=== PATIENT | male | born 1950 | race Caucasian/White ===

== ENCOUNTER 2018-12-03 13:26 | Outpatient (CLI) | payer MEDICARE ==
[2018-12-03 14:18] LABS: #Basophils 0.1 thou/uL (0.0-0.2); #Eosinphils 0.4 thou/uL (0.0-0.7); #Lymphocytes 2.1 thou/uL (1.20-3.40); #Monocytes 0.5 thou/uL (0.11-0.59); #Neutrophils 4.3 thou/uL (1.40-6.50); %Basophils 0.8 % (0.0-1.0); %Eosinophils 5.6 % (0.0-10.0); %Lymphocytes 28.6 % (21.0-51.0); %Monocytes 6.6 % (0.0-10.0); %Neutrophils 58.4 % (42.0-75.0); Hemoglobin 14.8 g/dL (14.0-18.0); Mean Corpuscular HGB CONC 35.8 g/dL (32.0-36.0); Mean Corpuscular Hemoglobin 31.8 pg (27.0-31.0); Mean Corpuscular Volume 88.7 fL (78.0-98.0); Mean Platelet Volume 7.5 fL (7.4-10.4); Platelet Count 211 thou/uL (130-400); Red Blood Cell (RBC) Count 4.65 mill/uL (4.70-6.10); White Blood Cell (WBC) Count 7.4 thou/uL (4.8-10.8)
[2018-12-03 14:48] LABS: ALT (SGPT) 28 U/L (8-55); AST (SGOT) 21 U/L (5-34); Albumin 4.4 g/dL (3.4-4.8); Alkaline Phosphatase 98 U/L (40-110); Anion Gap 11 mmol/L (10-20); BUN (Urea Nitrogen) 8 mg/dL (8.4-25.7); Bilirubin, Total 0.5 mg/dL (0.2-1.2); Calc. Creatinine Clearance 0 mL/min (70-130); Calcium 9.2 mg/dL (7.8-10.44); Carbon Dioxide 27 mmol/L (23-31); Chloride 107 mmol/L (98-107); Estimated GFR-MDRD 59; Globulin 2.4 g/dL (2.4-3.5); Glucose 93 mg/dL (80-115); Potassium 4.2 mmol/L (3.5-5.1); Protein, Total 6.8 g/dL (5.8-8.1); Sodium 141 mmol/L (136-145)
== END 2018-12-03 13:27 | disposition home or self-care (01) ==
LOC: LABBT 13:26
PROVIDERS: ATTEND Internal Medicine Cardiovascular Disease
DX: Z01.812 Encounter for preprocedural laboratory examination (principal); R94.39 Abnormal result of other cardiovascular function study
CPT/HCPCS: 80053; 85025

== ENCOUNTER 2018-12-08 05:43 | Day surgery (SDC) | payer MEDICARE ==
[2018-12-03 13:33] VITALS: BMI 25.1
[2018-12-08] MEDS ORDERED: Lidocaine 1% (PF) 30 ML VIAL ONE (07:00)
[2018-12-08] MEDS ORDERED: Diazepam 5 MG TAB ONE (07:45)
[2018-12-08] MEDS ORDERED: Fentanyl 100 MCG/2 ML VIAL ONE (08:07)
[2018-12-08] MEDS ORDERED: Midazolam HCl 2 mg/2 ml Vial ONE (08:07)
[2018-12-08] MEDS ORDERED: Nitroglycerin 100MG/250ML BOT 250 ML ONE (08:22)
[2018-12-08] MEDS ORDERED: Hydrocortisone Sod Succ/PF 100 mg/2 ml Vial ONE (08:42)
[2018-12-08] MEDS ORDERED: diphenhydrAMINE 50 MG/ML VIAL ONE (08:42)
[2018-12-08 09:45] LABS: Cardiac Risk 4.7 (Less than 4.5)
[2018-12-08] MEDS ORDERED: Iopamidol 370 76% 100 ML VIAL ONE (20:21)
== END 2018-12-08 13:45 | disposition home or self-care (01) ==
LOC: CCL 05:43
PROVIDERS: ATTEND Internal Medicine Cardiovascular Disease
PROC: 4A023N7 Measurement of Cardiac Sampling and Pressure, Left Heart, Percutaneous Approach (ICD-10-PCS; principal; 2018-12-08)
DX: R07.89 Other chest pain (principal); R06.09 Other forms of dyspnea; I10 Essential (primary) hypertension; J44.9 Chronic obstructive pulmonary disease, unspecified; F17.210 Nicotine dependence, cigarettes, uncomplicated; E78.2 Mixed hyperlipidemia; I49.3 Ventricular premature depolarization; E78.00 Pure hypercholesterolemia, unspecified; Z79.899 Other long term (current) drug therapy; Z82.49 Family history of ischemic heart disease and other diseases of the circulatory system
CPT/HCPCS: 76942; 80061; 93458; 99152; 99153; C1769; J1200; J1644; J1720; J2001; J2250; J3010; Q9967

== ENCOUNTER 2019-10-08 12:18 | Emergency (ER) | payer MEDICARE ==
[2019-10-08 13:33] LABS: ALT (SGPT) 28 U/L (8-55); AST (SGOT) 26 U/L (5-34); Albumin 4.5 g/dL (3.4-4.8); Alkaline Phosphatase 94 U/L (40-110); Anion Gap 14 mmol/L (10-20); BUN (Urea Nitrogen) 11 mg/dL (8.4-25.7); Calc. Creatinine Clearance 0 mL/min (70-130); Calcium 9.2 mg/dL (7.8-10.44); Carbon Dioxide 23 mmol/L (23-31); Chloride 103 mmol/L (98-107); Estimated GFR-MDRD 50; Globulin 2.8 g/dL (2.4-3.5); Glucose 150 mg/dL (80-115); Protein, Total 7.3 g/dL (5.8-8.1); Sodium 136 mmol/L (136-145)
[2019-10-08 14:42] LABS: Bacteria/HPF None Seen HPF (None Seen); Bilirubin Negative (Negative); Blood, Urine 1+ (Negative); Clarity Clear (Clear); Glucose, Urine (Dipstick) Normal (Negative); Ketone, Urine Trace mg/dL (Negative); Leukocyte Negative Leu/uL (Negative); Nitrite Negative (Negative); Protein, Urine (Dipstick) Negative (Neg-Trace); Specific Gravity, Urine 1.011 (1.002-1.036); Squamous Epithelial None Seen HPF (0-3); Urobilinogen Normal mg/dL (Less than 2); WBC/HPF 0-3 HPF (0-3); pH, Urine 5.5 (5.0-9.0)
== END 2019-10-08 15:30 | disposition home or self-care (01) ==
LOC: ERS 12:18
DX: N40.1 Benign prostatic hyperplasia with lower urinary tract symptoms (principal); R33.8 Other retention of urine; I48.91 Unspecified atrial fibrillation; J44.9 Chronic obstructive pulmonary disease, unspecified; F17.210 Nicotine dependence, cigarettes, uncomplicated; Z79.82 Long term (current) use of aspirin; Z79.899 Other long term (current) drug therapy
CPT/HCPCS: 36415; 51702; 80053; 81003; 81015; 87086

== ENCOUNTER 2019-11-04 05:59 | Observation (INO) | payer MEDICARE ==
[2019-11-02 10:51] VITALS: BMI 22.4
[2019-11-04] MEDS ORDERED: Heparin 5,000 UNITS/ML VIAL ONE (06:53)
[2019-11-04] MEDS ORDERED: Protamine Sulfate 50 MG/5 ML VIAL ONE (06:53)
[2019-11-04] MEDS ORDERED: Fentanyl 250 MCG/5 ML VIAL ONE (06:58)
[2019-11-04] MEDS ORDERED: Levofloxacin 500 mg/D5W 100 ml Premix Bag ONE (07:03)
[2019-11-04] MEDS ORDERED: Vancomycin 1 GM/200 ML BAG ONE (07:30)
[2019-11-04] MEDS ORDERED: Neomycin-Polymyxin 1 ML AMP ONE (08:01)
[2019-11-04] MEDS ORDERED: B & O ONE (09:26)
[2019-11-04] MEDS ORDERED: Acetaminophen 500 MG TAB PO PRN (09:31)
[2019-11-04] MEDS ORDERED: Oxybutynin 5 MG TAB PO PRN (09:31)
[2019-11-04] MEDS ORDERED: diphenhydrAMINE 25 MG CAP PO PRN (09:31)
[2019-11-04] MEDS ORDERED: Bisacodyl 10 MG SUPP PR PRN (09:31)
[2019-11-04] MEDS ORDERED: Hyoscyamine Sulfate SL 0.125 mg Tablet SL PRN (09:31)
[2019-11-04] MEDS ORDERED: Morphine 2 MG/ML VIAL SLOW IVP PRN (09:31)
[2019-11-04] MEDS ORDERED: Mag-Al 1200 mg/1200 mg/30 ML UDCUP PO PRN (09:31)
[2019-11-04] MEDS ORDERED: Phenazopyridine HCl 97.5 MG TABLET PO PRN (09:31)
[2019-11-04] MEDS ORDERED: hydrALAZINE 20 MG/ML VIAL SLOW IVP PRN (09:31)
[2019-11-04] MEDS ORDERED: Ondansetron PF 4 MG/2 ML Vial IVP PRN (09:31)
[2019-11-04] MEDS ORDERED: Zolpidem Tartrate 5 MG TAB PO PRN (09:31)
[2019-11-04] MEDS ORDERED: traMADol HCl 50 MG TAB PO PRN (09:33)
[2019-11-04] MEDS ORDERED: Fentanyl 100 MCG/2 ML VIAL ONE (09:44)
[2019-11-04] MEDS ORDERED: Meperidine HCl/PF 25 MG/ML VIAL ONE (09:44)
[2019-11-04] MEDS ORDERED: PROPOFOL 200 MG/20 ML VIAL ONE (11:30)
[2019-11-04] MEDS ORDERED: Rocuronium Bromide 10 MG/ML (10ML VIAL) ONE (11:30)
[2019-11-04] MEDS ORDERED: Glycopyrrolate 0.2 MG/ML 5 ML SYRINGE ONE (11:30)
[2019-11-04] MEDS ORDERED: Lidocaine 1% PF 5 ML VIAL ONE (11:30)
[2019-11-04] MEDS ORDERED: Ondansetron PF 4 MG/2 ML Vial ONE (11:30)
--- NOTE | 2019-11-04 16:28 | OP ---
DATE OF PROCEDURE: 11/04/2019 SERVICE: Urology. PREOPERATIVE DIAGNOSIS: Benign prostatic hypertrophy with urinary retention. POSTOPERATIVE DIAGNOSIS: Benign prostatic hypertrophy with urinary retention. PROCEDURE PERFORMED: Transurethral resection of prostate with transurethral vaporization of prostate. INDICATION FOR PROCEDURE: Mr. Aranda is a 69-year-old white male with BPH and urinary retention. He has failed multiple void trials. We elected to go for transurethral resection of the prostate due to his prostate size being too large for UroLift. Risks and benefits of surgery were discussed and he has agreed to proceed forward. DESCRIPTION OF PROCEDURE: After identification of armband and verification of consent, the patient was brought back to the operating room where he underwent general anesthesia with an LMA. He was then placed in a dorsal lithotomy position and prepped and draped in usual sterile fashion. His catheter was removed prior to preparation. After appropriate time-out, a lubricated 26-Italian resectoscope sheath with visual obturator was passed through urethra into the bladder. The irrigation had antibiotics in it as the patient was previously somewhat colonized with bacteria secondary to his indwelling catheter. The visual obturator was switched out for the bipolar prostate resectoscope loop. Resection was started at the bladder neck and carried out to the verumontanum circumferentially until all obstructing prostate tissue was removed. Meticulous hemostasis was performed and all prostate chips were removed. The bipolar loop was then switched out for the bipolar vaporization button and any ridges and additional tissue were smoothed out until there was a wide-open channel that was not obstructive. The apical tissue was also vaporized down taking care not to pass the verumontanum to avoid sphincteric injury. Upon completion, there was no evidence of any obstruction. Meticulous hemostasis was performed until there was no bleeding seen with irrigation off. All chips were removed from the prostate. Both ureters were in orthotopic location unharmed. The resectoscope sheath was then removed. A 22-Italian 3-way Cook catheter was then placed in the patient's bladder with 30 mL of sterile water into the balloon and CBI initiated. B and O suppository were placed in his rectum. He was then taken out of positioning, awakened, had a StatLock secured, and was taken to PACU for recovery in stable condition. COMPLICATIONS: None. ESTIMATED BLOOD LOSS: Minimal. RETAINED TUBES AND DRAINS: 22-Italian 3-way Cook catheter on CBI. SPECIMENS: Prostate chips for analysis. DISPOSITION: The patient will be kept in the hospital overnight for monitoring. We will plan a void trial in the morning and discharge home subsequently either with or without a catheter pending results of the void trial. Job ID: [id number]
[2019-11-04] MEDS: Docusate 100 MG CAP PO SCH (19:40)
[2019-11-04] MEDS: Famotidine/PF 20 mg/2ml Vial SLOW IVP SCH (19:41)
[2019-11-04] MEDS ORDERED: Ezetimibe 10 MG TAB PO SCH (21:00)
[2019-11-04] MEDS ORDERED: Rosuvastatin 20 MG TAB PO SCH (21:00)
[2019-11-04] MEDS ORDERED: Lisinopril 2.5 MG TAB PO SCH (21:00)
[2019-11-05] MEDS: Docusate 100 MG CAP PO SCH (09:43)
[2019-11-05] MEDS: Famotidine/PF 20 mg/2ml Vial SLOW IVP SCH (09:43)
--- NOTE | 2019-11-05 12:21 | PRG ---
DATE OF SERVICE: 11/05/2019 SUBJECTIVE: The patient states he is feeling fine. No complaints overnight. No bladder spasms, chest pain, or shortness of breath. OBJECTIVE: VITAL SIGNS: Temperature 98.4, pulse 74, respirations 18, blood pressure 97/55, saturation 93% on room air. GENERAL: No apparent distress. Communicative, alert. CARDIOVASCULAR: Regular rate and rhythm. CHEST: Nonlabored breathing. ABDOMEN: Soft, nontender, nondistended. : Cook catheter in place. CBI off with a translucent orange Pyridium colored urine. EXTREMITIES: No edema. ASSESSMENT AND PLAN: A 69-year-old white male, status post TURP with TUVP, postop day 1 with relatively clear urine. I do feel that he can have his voiding trial today. When he came in with retention, there is only 50% chance that he will be able to void. If he can void with enough emptying, then he can be discharged without a catheter. If he cannot void or has extremely high PVRs, then I would recommend the catheter be replaced and the patient go home with a catheter to come back later for another void trial. I have gone over all of his discharge instructions. His medications have been sent in and I will see him back either in 1 to 2 weeks for a postop check or for a void trial sooner if he goes home with a catheter. Job ID: [id number]
[2019-11-05 15:38] VITALS: BP 96/62; TEMP 97.5
--- NOTE | 2019-11-05 16:53 | DIS ---
DATE OF ADMISSION: 11/04/2019 DATE OF DISCHARGE: 11/05/2019 ADMITTING PHYSICIAN: Dr. Gallagher. DISCHARGING PHYSICIAN: Dr. Gallagher. ADMITTING DIAGNOSIS: BPH with retention. DISCHARGE DIAGNOSIS: BPH with retention. PROCEDURE PERFORMED: While inpatient is transurethral resection and vaporization of the prostate. BRIEF HISTORY: Mr. Aranda is a 69-year-old white male with BPH and urinary retention. He has failed multiple void trials and is now coming in for resection of his prostate to allow for improved voiding. The full H and P can be found in the scanned portion of the [employer] system. HOSPITAL COURSE: After surgery (please see operative note for details), the patient was kept in the hospital overnight with CBI. The CBI was stopped in the morning. The patient's urine remained relatively clear. The catheter was removed and at the time of this dictation, his voiding trial is still currently pending. Decision to discharge him will be based on whether or not he voids. If he is able to void to completion, he will be sent home without a catheter. If he has elevated PVRs or is unable to void, then he will be sent home with a catheter and his followup will be sooner for repeat void trial next week. I have gone over all of his discharge instructions. DISPOSITION: Discharged to home. DISCHARGE CONDITION: Good. DISCHARGE MEDICATIONS: The patient may resume all of his home medications with the exception of aspirin, which I have asked him to stop until his urine clears. In addition, he has been given prescriptions for, 1. Tramadol 50 mg p.o. q.6 hours p.r.n. pain. 2. Colace 100 mg p.o. daily. 3. Oxybutynin 5 mg p.o. t.i.d. p.r.n. bladder spasms. 4. Pyridium 200 mg p.o. t.i.d. p.r.n. dysuria. Followup will be in 1 to 2 weeks for postop check or sooner if void trial is needed. Job ID: [id number]
--- NOTE | 2019-11-07 17:29 | EKG ---
Test Reason : PREOP Blood Pressure : / mmHG Vent. Rate : 054 BPM Atrial Rate : 054 BPM P-R Int : 162 ms QRS Dur : 096 ms QT Int : 416 ms P-R-T Axes : 050 026 073 degrees QTc Int : 394 ms Sinus bradycardia Otherwise normal ECG No previous ECGs available Confirmed by CLAYTON MONTOYA (2) on 11/07/2019 5:29:23 PM Referred By: JORGE Confirmed By:CLAYTON MONTOYA
== END 2019-11-05 15:38 | disposition home or self-care (01) ==
LOC: SDC 05:59 → SURG A 09:32
PROVIDERS: ADMIT Urology; ATTEND Urology
PROC: 0VT08ZZ Resection of Prostate, Via Natural or Artificial Opening Endoscopic (ICD-10-PCS; principal; 2019-11-04)
DX: N40.1 Benign prostatic hyperplasia with lower urinary tract symptoms (principal); R33.8 Other retention of urine; R35.0 Frequency of micturition; N41.1 Chronic prostatitis; E78.00 Pure hypercholesterolemia, unspecified; F17.210 Nicotine dependence, cigarettes, uncomplicated; R13.10 Dysphagia, unspecified; Z79.82 Long term (current) use of aspirin; Z79.899 Other long term (current) drug therapy
CPT/HCPCS: 88305; 93005; 93010; 96365; 96375; 96376; G0378; J1644; J1956; J2175; J2405; J2704; J2720; J3010; J3370; S0028

== ENCOUNTER 2020-12-14 13:37 | Inpatient (IN) | payer MEDICARE ==
[2020-12-14] MEDS ORDERED: Aspirin 325 MG TAB ONE (14:24)
[2020-12-14] MEDS ORDERED: Acetaminophen 500 MG TAB ONE (14:24)
[2020-12-14 14:54] LABS: Hemoglobin 15.9 g/dL (14.0-18.0); Mean Corpuscular HGB CONC 33.8 g/dL (32.0-36.0); Mean Corpuscular Hemoglobin 30.1 pg (27.0-31.0); Mean Platelet Volume 8.3 fL (7.4-10.4); Platelet Count 226 thou/uL (130-400); RBC Distribution Width 12.1 % (11.5-14.5); Red Blood Cell (RBC) Count 5.28 mill/uL (4.70-6.10); White Blood Cell (WBC) Count 10.9 thou/uL (4.8-10.8)
[2020-12-14 15:10] LABS: Band 33 % (5-11); Lymphocytes 3 % (21-51); MDiff Complete? YES; Monocytes 2 % (0-10); Neutrophil 62 % (42-75); Platelet Morphology Comment Appears Adequate; RBC Morphology Normal
[2020-12-14 15:37] LABS: ALT (SGPT) 73 U/L (8-55); AST (SGOT) 101 U/L (5-34); Albumin 3.6 g/dL (3.4-4.8); Alkaline Phosphatase 91 U/L (40-110); Anion Gap 17 mmol/L (10-20); BUN (Urea Nitrogen) 56 mg/dL (8.4-25.7); Bilirubin, Total 1.1 mg/dL (0.2-1.2); Calc. Creatinine Clearance 0 mL/min (70-130); Calcium 7.8 mg/dL (7.8-10.44); Carbon Dioxide 25 mmol/L (23-31); Chloride 96 mmol/L (98-107); Globulin 3.3 g/dL (2.4-3.5); Glucose 132 mg/dL (80-115); Potassium 3.7 mmol/L (3.5-5.1); Protein, Total 6.9 g/dL (5.8-8.1); Sodium 134 mmol/L (136-145)
[2020-12-14 16:40] LABS: SARS-CoV-2 NAA Rapid Test DETECTED (NotDetected)
[2020-12-14] MEDS ORDERED: Ondansetron PF 4 MG/2 ML Vial IVP PRN (20:26)
[2020-12-14] MEDS ORDERED: Dexamethasone 4 MG TAB PO SCH (20:45)
[2020-12-14] MEDS ORDERED: Zinc Sulfate 220 MG CAP PO SCH (20:45)
[2020-12-14] MEDS ORDERED: Colchicine 0.6 MG TAB PO SCH (20:45)
[2020-12-14] MEDS ORDERED: Enoxaparin Sodium 80 MG/0.8 ML SYRINGE SC SCH (21:00)
[2020-12-14] MEDS: Hydroxychloroquine Sulfate 200 MG TAB PO SCH (21:23)
[2020-12-14] MEDS: Sodium Chloride 0.9% 1,000 ML IV SCH (23:08)
[2020-12-15 00:48] VITALS: BMI 21.8
[2020-12-15] MEDS: Azithromycin 500 MG in Sodium Chloride 0.9% 250 ML 250 ML IVPB SCH ×2 (04:17→20:41)
[2020-12-15 05:56] LABS: Hemoglobin 12.5 g/dL (14.0-18.0); Mean Corpuscular HGB CONC 33.7 g/dL (32.0-36.0); Mean Corpuscular Hemoglobin 30.3 pg (27.0-31.0); Mean Corpuscular Volume 89.9 fL (78.0-98.0); Mean Platelet Volume 8.1 fL (7.4-10.4); Platelet Count 200 thou/uL (130-400); RBC Distribution Width 12.2 % (11.5-14.5); Red Blood Cell (RBC) Count 4.13 mill/uL (4.70-6.10); White Blood Cell (WBC) Count 8.9 thou/uL (4.8-10.8)
[2020-12-15 06:01] LABS: Anion Gap 12 mmol/L (10-20); BUN (Urea Nitrogen) 58 mg/dL (8.4-25.7); CRP (Inflammatory) 17.58 mg/dL (= or < 0.5); Calc. Creatinine Clearance 36 mL/min (70-130); Calcium 6.6 mg/dL (7.8-10.44); Carbon Dioxide 20 mmol/L (23-31); Chloride 103 mmol/L (98-107); Glucose 102 mg/dL (80-115); Potassium 3.4 mmol/L (3.5-5.1); Sodium 132 mmol/L (136-145)
[2020-12-15 08:54] LABS: Band 8 % (5-11); Lymphocytes 4 % (21-51); MDiff Complete? YES; Monocytes 1 % (0-10); Neutrophil 87 % (42-75)
[2020-12-15] MEDS ORDERED: FLU VACC QS2021-22(65YR UP)/PF 240 MCG/0.7 ML SYRINGE IM ONE (09:00)
[2020-12-15] MEDS: Benzonatate 100 MG CAP PO PRN (09:59)
[2020-12-15] MEDS: Dexamethasone 4 MG TAB PO SCH (09:59)
[2020-12-15] MEDS: Sodium Chloride 0.9% 1,000 ML IV SCH ×2 (09:59→20:04)
[2020-12-15] MEDS: Aspirin 325 MG TAB PO SCH (10:00)
[2020-12-15] MEDS: Enoxaparin Sodium 80 MG/0.8 ML SYRINGE SC SCH ×2 (10:00→20:39)
[2020-12-15] MEDS: Hydroxychloroquine Sulfate 200 MG TAB PO SCH ×2 (10:01→20:39)
[2020-12-15] MEDS: Zinc Sulfate 220 MG CAP PO SCH (10:01)
[2020-12-15] MEDS: Colchicine 0.6 MG TAB PO SCH (10:08)
[2020-12-15] MEDS ORDERED: Pharmacy to Dose REMDESIVIR IVPB PRN (18:01)
[2020-12-15] MEDS: NS 0.9% w/ 20 MEQ KCL 1,000 ML IV SCH (20:41)
[2020-12-16] MEDS: NS 0.9% w/ 20 MEQ KCL 1,000 ML IV SCH ×3 (05:58→15:50)
[2020-12-16 06:05] LABS: #Lymphocytes 0.3 thou/uL (1.20-3.40); #Monocytes 0.3 thou/uL (0.11-0.59); #Neutrophils 7.5 thou/uL (1.40-6.50); %Eosinophils 0.1 % (0.0-10.0); %Lymphocytes 4.2 % (21.0-51.0); %Monocytes 3.8 % (0.0-10.0); Hemoglobin 12.2 g/dL (14.0-18.0); Mean Corpuscular HGB CONC 33.9 g/dL (32.0-36.0); Mean Corpuscular Hemoglobin 30.2 pg (27.0-31.0); Mean Corpuscular Volume 88.9 fL (78.0-98.0); Mean Platelet Volume 7.4 fL (7.4-10.4); Platelet Count 263 thou/uL (130-400); RBC Distribution Width 11.8 % (11.5-14.5); Red Blood Cell (RBC) Count 4.05 mill/uL (4.70-6.10); White Blood Cell (WBC) Count 8.2 thou/uL (4.8-10.8)
[2020-12-16 06:22] LABS: Anion Gap 13 mmol/L (10-20); BUN (Urea Nitrogen) 50 mg/dL (8.4-25.7); Calc. Creatinine Clearance 47 mL/min (70-130); Calcium 6.8 mg/dL (7.8-10.44); Carbon Dioxide 19 mmol/L (23-31); Chloride 109 mmol/L (98-107); Glucose 119 mg/dL (80-115); Potassium 3.5 mmol/L (3.5-5.1); Sodium 137 mmol/L (136-145)
[2020-12-16] MEDS: Dexamethasone 4 MG TAB PO SCH (10:10)
[2020-12-16] MEDS: Colchicine 0.6 MG TAB PO SCH (10:10)
[2020-12-16] MEDS: Aspirin 325 MG TAB PO SCH (10:10)
[2020-12-16] MEDS: Benzonatate 100 MG CAP PO PRN (10:12)
[2020-12-16] MEDS: Enoxaparin Sodium 80 MG/0.8 ML SYRINGE SC SCH ×2 (10:12→20:33)
[2020-12-16] MEDS: Zinc Sulfate 220 MG CAP PO SCH (10:12)
[2020-12-16] MEDS: Hydroxychloroquine Sulfate 200 MG TAB PO SCH ×2 (10:18→20:33)
[2020-12-16] MEDS ORDERED: Pharmacy to Dose REMDESIVIR IVPB PRN (16:04)
[2020-12-16] MEDS ORDERED: REMDESIVIR 200 MG in Sodium Chloride 0.9% 250 ML 210 ML IV SCH (17:00)
[2020-12-16] MEDS: Azithromycin 500 MG in Sodium Chloride 0.9% 250 ML 250 ML IVPB SCH (20:33)
[2020-12-17] MEDS: NS 0.9% w/ 20 MEQ KCL 1,000 ML IV SCH ×2 (02:21→10:00)
[2020-12-17 05:57] LABS: #Lymphocytes 0.3 thou/uL (1.20-3.40); #Monocytes 0.3 thou/uL (0.11-0.59); #Neutrophils 7.8 thou/uL (1.40-6.50); %Basophils 0.1 % (0.0-1.0); %Eosinophils 0.1 % (0.0-10.0); %Lymphocytes 3.3 % (21.0-51.0); %Monocytes 3.2 % (0.0-10.0); %Neutrophils 93.3 % (42.0-75.0); Hemoglobin 13.1 g/dL (14.0-18.0); Mean Corpuscular Volume 88.5 fL (78.0-98.0); Mean Platelet Volume 7.1 fL (7.4-10.4); Platelet Count 330 thou/uL (130-400); Red Blood Cell (RBC) Count 4.21 mill/uL (4.70-6.10); White Blood Cell (WBC) Count 8.4 thou/uL (4.8-10.8)
[2020-12-17 06:39] LABS: ALT (SGPT) 47 U/L (8-55); AST (SGOT) 53 U/L (5-34); Albumin 2.7 g/dL (3.4-4.8); Alkaline Phosphatase 61 U/L (40-110); Anion Gap 9 mmol/L (10-20); BUN (Urea Nitrogen) 34 mg/dL (8.4-25.7); Bilirubin, Total 0.4 mg/dL (0.2-1.2); CRP (Inflammatory) 5.99 mg/dL (= or < 0.5); Calc. Creatinine Clearance 57 mL/min (70-130); Carbon Dioxide 23 mmol/L (23-31); Chloride 114 mmol/L (98-107); Globulin 2.4 g/dL (2.4-3.5); Glucose 92 mg/dL (80-115); Potassium 3.9 mmol/L (3.5-5.1); Protein, Total 5.1 g/dL (5.8-8.1); Sodium 142 mmol/L (136-145)
[2020-12-17] MEDS: Zinc Sulfate 220 MG CAP PO SCH (09:26)
[2020-12-17] MEDS: Dexamethasone 4 MG TAB PO SCH (09:26)
[2020-12-17] MEDS: Benzonatate 100 MG CAP PO PRN ×2 (09:26→17:23)
[2020-12-17] MEDS: Hydroxychloroquine Sulfate 200 MG TAB PO SCH ×2 (09:27→20:44)
[2020-12-17] MEDS: Aspirin 325 MG TAB PO SCH (09:27)
[2020-12-17] MEDS: Enoxaparin Sodium 80 MG/0.8 ML SYRINGE SC SCH ×2 (09:27→20:44)
[2020-12-17] MEDS: Colchicine 0.6 MG TAB PO SCH (09:30)
[2020-12-17] MEDS: Azithromycin 500 MG in Sodium Chloride 0.9% 250 ML 250 ML IVPB SCH (20:44)
[2020-12-17] MEDS: REMDESIVIR 100 MG in Sodium Chloride 0.9% 250 ML 230 ML IV SCH (22:09)
[2020-12-18 05:55] LABS: Hemoglobin 12.2 g/dL (14.0-18.0); Mean Corpuscular HGB CONC 34.9 g/dL (32.0-36.0); Mean Corpuscular Hemoglobin 31.1 pg (27.0-31.0); Mean Corpuscular Volume 89.3 fL (78.0-98.0); Mean Platelet Volume 7.1 fL (7.4-10.4); Platelet Count 312 thou/uL (130-400); RBC Distribution Width 12.2 % (11.5-14.5); Red Blood Cell (RBC) Count 3.93 mill/uL (4.70-6.10)
[2020-12-18 06:14] LABS: Anion Gap 15 mmol/L (10-20); BUN (Urea Nitrogen) 28 mg/dL (8.4-25.7); CRP (Inflammatory) 9.87 mg/dL (= or < 0.5); Calc. Creatinine Clearance 65 mL/min (70-130); Calcium 6.8 mg/dL (7.8-10.44); Carbon Dioxide 17 mmol/L (23-31); Chloride 113 mmol/L (98-107); Glucose 83 mg/dL (80-115); Potassium 3.7 mmol/L (3.5-5.1); Sodium 141 mmol/L (136-145)
[2020-12-18 06:24] LABS: Band 7 % (5-11); Lymphocytes 6 % (21-51); MDiff Complete? YES; Monocytes 2 % (0-10); Neutrophil 84 % (42-75); Reactive Lymphocytes 1 % (0-10)
[2020-12-18] MEDS: Zinc Sulfate 220 MG CAP PO SCH (09:47)
[2020-12-18] MEDS: Benzonatate 100 MG CAP PO PRN (09:47)
[2020-12-18] MEDS: Dexamethasone 4 MG TAB PO SCH (09:47)
[2020-12-18] MEDS: Aspirin 325 MG TAB PO SCH (09:48)
[2020-12-18] MEDS: Enoxaparin Sodium 80 MG/0.8 ML SYRINGE SC SCH ×2 (09:48→20:57)
[2020-12-18] MEDS: Colchicine 0.6 MG TAB PO SCH (09:55)
[2020-12-18] MEDS: Hydroxychloroquine Sulfate 200 MG TAB PO SCH ×2 (09:55→20:57)
[2020-12-18] MEDS: Acetaminophen 325 MG TAB PO PRN (09:55)
[2020-12-18] MEDS: Azithromycin 500 MG in Sodium Chloride 0.9% 250 ML 250 ML IVPB SCH (20:57)
[2020-12-18] MEDS: REMDESIVIR 100 MG in Sodium Chloride 0.9% 250 ML 230 ML IV SCH (22:22)
[2020-12-19] MEDS ORDERED: Acetaminophen/Codeine 30-300mg Tablet PO PRN (00:14)
[2020-12-19 05:44] LABS: Hemoglobin 11.4 g/dL (14.0-18.0); Mean Corpuscular HGB CONC 35.1 g/dL (32.0-36.0); Mean Corpuscular Hemoglobin 31.4 pg (27.0-31.0); Mean Corpuscular Volume 89.4 fL (78.0-98.0); Mean Platelet Volume 6.9 fL (7.4-10.4); Platelet Count 334 thou/uL (130-400); RBC Distribution Width 12.1 % (11.5-14.5); Red Blood Cell (RBC) Count 3.61 mill/uL (4.70-6.10); White Blood Cell (WBC) Count 7.1 thou/uL (4.8-10.8)
[2020-12-19 05:48] LABS: #Lymphocytes 0.5 thou/uL (1.20-3.40); #Monocytes 0.2 thou/uL (0.11-0.59); #Neutrophils 6.6 thou/uL (1.40-6.50); %Eosinophils 0.2 % (0.0-10.0); %Lymphocytes 7.4 % (21.0-51.0); %Monocytes 2.8 % (0.0-10.0); %Neutrophils 89.6 % (42.0-75.0)
[2020-12-19 05:59] LABS: ALT (SGPT) 154 U/L (8-55); AST (SGOT) 178 U/L (5-34); Albumin 2.6 g/dL (3.4-4.8); Alkaline Phosphatase 82 U/L (40-110); Anion Gap 13 mmol/L (10-20); BUN (Urea Nitrogen) 28 mg/dL (8.4-25.7); Bilirubin, Total 0.5 mg/dL (0.2-1.2); CRP (Inflammatory) 8.79 mg/dL (= or < 0.5); Calc. Creatinine Clearance 68 mL/min (70-130); Calcium 6.9 mg/dL (7.8-10.44); Carbon Dioxide 18 mmol/L (23-31); Chloride 111 mmol/L (98-107); Globulin 2.2 g/dL (2.4-3.5); Glucose 99 mg/dL (80-115); Potassium 3.4 mmol/L (3.5-5.1); Protein, Total 4.8 g/dL (5.8-8.1); Sodium 139 mmol/L (136-145)
[2020-12-19] MEDS ORDERED: HYDROcodone/Acetaminophen 5/325 mg Tablet PO PRN ×2 (08:11→13:47)
[2020-12-19] MEDS: Zinc Sulfate 220 MG CAP PO SCH (09:32)
[2020-12-19] MEDS: Benzonatate 100 MG CAP PO PRN (09:32)
[2020-12-19] MEDS: Aspirin 325 MG TAB PO SCH (09:32)
[2020-12-19] MEDS: Colchicine 0.6 MG TAB PO SCH (09:33)
[2020-12-19] MEDS: Dexamethasone 4 MG TAB PO SCH (09:35)
[2020-12-19] MEDS: Enoxaparin Sodium 80 MG/0.8 ML SYRINGE SC SCH ×2 (09:35→20:19)
[2020-12-19] MEDS: Hydroxychloroquine Sulfate 200 MG TAB PO SCH ×3 (09:35→22:33)
[2020-12-19] MEDS ORDERED: oxyCODONE/Acetaminophen 5 mg/325 mg Tablet PO PRN ×2 (13:41)
[2020-12-19] MEDS: HYDROcodone/Acetaminophen 5/325 mg Tablet PO PRN ×2 (13:54→18:31)
[2020-12-19] MEDS: Azithromycin 500 MG in Sodium Chloride 0.9% 250 ML 250 ML IVPB SCH (20:18)
[2020-12-19] MEDS ORDERED: Sodium Chloride 0.9% 1,000 ML IV SCH (22:00)
[2020-12-19] MEDS: REMDESIVIR 100 MG in Sodium Chloride 0.9% 250 ML 230 ML IV SCH (22:33)
[2020-12-20] MEDS: Acetaminophen 325 MG TAB PO PRN ×2 (03:40→17:32)
[2020-12-20 05:34] LABS: Hemoglobin 8.4 g/dL (14.0-18.0); Mean Corpuscular HGB CONC 36.6 g/dL (32.0-36.0); Mean Corpuscular Hemoglobin 32.8 pg (27.0-31.0); Mean Corpuscular Volume 89.7 fL (78.0-98.0); Mean Platelet Volume 7.5 fL (7.4-10.4); Platelet Count 405 thou/uL (130-400); RBC Distribution Width 12.2 % (11.5-14.5); Red Blood Cell (RBC) Count 2.57 mill/uL (4.70-6.10); White Blood Cell (WBC) Count 14.8 thou/uL (4.8-10.8)
[2020-12-20 05:54] LABS: Anion Gap 15 mmol/L (10-20); BUN (Urea Nitrogen) 34 mg/dL (8.4-25.7); CRP (Inflammatory) 5.02 mg/dL (= or < 0.5); Calc. Creatinine Clearance 61 mL/min (70-130); Calcium 6.7 mg/dL (7.8-10.44); Carbon Dioxide 15 mmol/L (23-31); Chloride 108 mmol/L (98-107); Glucose 240 mg/dL (80-115); Potassium 4.2 mmol/L (3.5-5.1); Sodium 134 mmol/L (136-145)
[2020-12-20 05:58] LABS: Band 3 % (5-11); Lymphocytes 5 % (21-51); MDiff Complete? YES; Monocytes 3 % (0-10); Neutrophil 89 % (42-75)
[2020-12-20] MEDS: Aspirin 325 MG TAB PO SCH (08:48)
[2020-12-20] MEDS: Dexamethasone 4 MG TAB PO SCH (08:49)
[2020-12-20] MEDS: Zinc Sulfate 220 MG CAP PO SCH (08:50)
[2020-12-20] MEDS: Enoxaparin Sodium 80 MG/0.8 ML SYRINGE SC SCH ×2 (08:50→20:27)
[2020-12-20] MEDS: Colchicine 0.6 MG TAB PO SCH (08:50)
[2020-12-20] MEDS ORDERED: Midodrine HCl 5 MG TAB PO SCH (16:00)
[2020-12-20 16:35] LABS: Hemoglobin 8.8 g/dL (14.0-18.0); Mean Corpuscular HGB CONC 36.3 g/dL (32.0-36.0); Mean Corpuscular Hemoglobin 32.8 pg (27.0-31.0); Mean Corpuscular Volume 90.3 fL (78.0-98.0); Mean Platelet Volume 7.6 fL (7.4-10.4); Platelet Count 400 thou/uL (130-400); RBC Distribution Width 12.2 % (11.5-14.5); Red Blood Cell (RBC) Count 2.69 mill/uL (4.70-6.10); White Blood Cell (WBC) Count 16.5 thou/uL (4.8-10.8)
[2020-12-20 16:54] LABS: Band 3 % (5-11); Lymphocytes 2 % (21-51); MDiff Complete? YES; Monocytes 2 % (0-10); Neutrophil 91 % (42-75); Platelet Morphology Comment Appears Adequate; Polychromasia SLIGHT = 2-3 cells (100X) (0-2/hpf); Reactive Lymphocytes 2 % (0-10)
[2020-12-20] MEDS: Azithromycin 500 MG in Sodium Chloride 0.9% 250 ML 250 ML IVPB SCH (20:27)
[2020-12-20] MEDS: Hydroxychloroquine Sulfate 200 MG TAB PO SCH (20:28)
[2020-12-20] MEDS: Midodrine HCl 5 MG TAB PO SCH (22:08)
[2020-12-20] MEDS: REMDESIVIR 100 MG in Sodium Chloride 0.9% 250 ML 230 ML IV SCH (22:08)
[2020-12-21 06:10] LABS: Anion Gap 15 mmol/L (10-20); BUN (Urea Nitrogen) 40 mg/dL (8.4-25.7); Calc. Creatinine Clearance 47 mL/min (70-130); Calcium 6.7 mg/dL (7.8-10.44); Carbon Dioxide 19 mmol/L (23-31); Chloride 106 mmol/L (98-107); Glucose 114 mg/dL (80-115); Sodium 136 mmol/L (136-145)
[2020-12-21 06:11] LABS: Band 4 % (5-11); Hemoglobin 6.5 g/dL (14.0-18.0); Lymphocytes 7 % (21-51); MDiff Complete? YES; Mean Corpuscular Hemoglobin 31.5 pg (27.0-31.0); Mean Platelet Volume 7.8 fL (7.4-10.4); Monocytes 2 % (0-10); Neutrophil 87 % (42-75); Platelet Count 364 thou/uL (130-400); Platelet Morphology Comment Appears Adequate; RBC Distribution Width 12.4 % (11.5-14.5); RBC Morphology Normal; Red Blood Cell (RBC) Count 2.07 mill/uL (4.70-6.10); White Blood Cell (WBC) Count 14.9 thou/uL (4.8-10.8)
[2020-12-21] MEDS: Zinc Sulfate 220 MG CAP PO SCH (08:55)
[2020-12-21] MEDS: Dexamethasone 4 MG TAB PO SCH (08:55)
[2020-12-21] MEDS: Colchicine 0.6 MG TAB PO SCH (08:55)
[2020-12-21] MEDS: Aspirin 325 MG TAB PO SCH ×2 (08:55→09:13)
[2020-12-21] MEDS: Midodrine HCl 5 MG TAB PO SCH ×3 (08:56→20:37)
[2020-12-21] MEDS: Hydroxychloroquine Sulfate 200 MG TAB PO SCH ×2 (08:56→20:37)
[2020-12-21] MEDS: Enoxaparin Sodium 80 MG/0.8 ML SYRINGE SC SCH (08:59)
[2020-12-21] MEDS: Azithromycin 500 MG in Sodium Chloride 0.9% 250 ML 250 ML IVPB SCH (20:37)
[2020-12-22] MEDS: Dexamethasone 4 MG TAB PO SCH (08:21)
[2020-12-22] MEDS: Zinc Sulfate 220 MG CAP PO SCH (08:21)
[2020-12-22] MEDS: Aspirin 325 MG TAB PO SCH (08:22)
[2020-12-22] MEDS: Colchicine 0.6 MG TAB PO SCH (08:22)
[2020-12-22] MEDS: Hydroxychloroquine Sulfate 200 MG TAB PO SCH ×2 (08:22→20:27)
[2020-12-22] MEDS: Midodrine HCl 5 MG TAB PO SCH ×3 (08:28→20:27)
[2020-12-22] MEDS ORDERED: Ergocalciferol 1.25 MG(50,000 UNITS) CAP PO SCH (09:00)
[2020-12-22 11:15] LABS: Hemoglobin 8.6 g/dL (14.0-18.0); Mean Corpuscular HGB CONC 35.5 g/dL (32.0-36.0); Mean Corpuscular Hemoglobin 31.4 pg (27.0-31.0); Mean Corpuscular Volume 88.3 fL (78.0-98.0); Mean Platelet Volume 7.6 fL (7.4-10.4); Platelet Count 320 thou/uL (130-400); RBC Distribution Width 12.5 % (11.5-14.5); Red Blood Cell (RBC) Count 2.76 mill/uL (4.70-6.10); White Blood Cell (WBC) Count 20.9 thou/uL (4.8-10.8)
[2020-12-22 11:25] LABS: Band 2 % (5-11); Lymphocytes 5 % (21-51); MDiff Complete? YES; Monocytes 6 % (0-10); Neutrophil 87 % (42-75); Platelet Morphology Comment Appears Adequate; Vacuoles SLIGHT
[2020-12-22 11:26] LABS: Anion Gap 11 mmol/L (10-20); BUN (Urea Nitrogen) 38 mg/dL (8.4-25.7); Calc. Creatinine Clearance 51 mL/min (70-130); Calcium 7.3 mg/dL (7.8-10.44); Carbon Dioxide 22 mmol/L (23-31); Chloride 103 mmol/L (98-107); Glucose 144 mg/dL (80-115); Potassium 4.1 mmol/L (3.5-5.1); Sodium 132 mmol/L (136-145)
[2020-12-23 05:07] LABS: Anion Gap 13 mmol/L (10-20); BUN (Urea Nitrogen) 40 mg/dL (8.4-25.7); CRP (Inflammatory) 4.75 mg/dL (= or < 0.5); Calc. Creatinine Clearance 52 mL/min (70-130); Calcium 6.9 mg/dL (7.8-10.44); Carbon Dioxide 22 mmol/L (23-31); Chloride 103 mmol/L (98-107); Glucose 107 mg/dL (80-115); Potassium 4.5 mmol/L (3.5-5.1); Sodium 133 mmol/L (136-145)
[2020-12-23 05:09] LABS: Anisocytosis SLIGHT = 6-15 cells (100X) (0-5/hpf); Band 11 % (5-11); Hemoglobin 6.9 g/dL (14.0-18.0); Lymphocytes 6 % (21-51); MDiff Complete? YES; Mean Corpuscular HGB CONC 34.2 g/dL (32.0-36.0); Mean Corpuscular Hemoglobin 30.4 pg (27.0-31.0); Mean Corpuscular Volume 88.7 fL (78.0-98.0); Mean Platelet Volume 7.9 fL (7.4-10.4); Metamyelocyte 3 % (0-0); Monocytes 5 % (0-10); Myelocyte 2 % (0-0); Neutrophil 73 % (42-75); Platelet Count 256 thou/uL (130-400); Platelet Morphology Comment Appears Adequate; Polychromasia SLIGHT = 2-3 cells (100X) (0-2/hpf); RBC Distribution Width 12.3 % (11.5-14.5); Red Blood Cell (RBC) Count 2.28 mill/uL (4.70-6.10); Rouleaux Formation SLIGHT = 1-5 cells (100X) (None Seen); White Blood Cell (WBC) Count 19.3 thou/uL (4.8-10.8)
[2020-12-23] MEDS: Dexamethasone 4 MG TAB PO SCH (08:24)
[2020-12-23] MEDS: Midodrine HCl 5 MG TAB PO SCH ×3 (08:25→21:01)
[2020-12-23] MEDS: Hydroxychloroquine Sulfate 200 MG TAB PO SCH ×2 (08:25→21:01)
[2020-12-23] MEDS: Zinc Sulfate 220 MG CAP PO SCH (08:26)
[2020-12-23] MEDS: Colchicine 0.6 MG TAB PO SCH (08:26)
[2020-12-23] MEDS: Aspirin 325 MG TAB PO SCH (08:27)
[2020-12-24 05:50] LABS: Band 16 % (5-11); Hemoglobin 8.4 g/dL (14.0-18.0); Hypochromia SLIGHT = 6-15 cells (100X) (0-5/hpf); Lymphocytes 7 % (21-51); MDiff Complete? YES; Mean Corpuscular HGB CONC 34.3 g/dL (32.0-36.0); Mean Corpuscular Hemoglobin 30.6 pg (27.0-31.0); Mean Corpuscular Volume 89.2 fL (78.0-98.0); Mean Platelet Volume 8.2 fL (7.4-10.4); Monocytes 3 % (0-10); Neutrophil 74 % (42-75); Platelet Count 209 thou/uL (130-400); Platelet Morphology Comment Appears Adequate; RBC Distribution Width 13.2 % (11.5-14.5); Red Blood Cell (RBC) Count 2.73 mill/uL (4.70-6.10); White Blood Cell (WBC) Count 17.7 thou/uL (4.8-10.8)
[2020-12-24 05:58] LABS: Anion Gap 12 mmol/L (10-20); BUN (Urea Nitrogen) 32 mg/dL (8.4-25.7); Calc. Creatinine Clearance 63 mL/min (70-130); Carbon Dioxide 21 mmol/L (23-31); Chloride 104 mmol/L (98-107); Glucose 97 mg/dL (80-115); Potassium 4.2 mmol/L (3.5-5.1); Sodium 133 mmol/L (136-145)
[2020-12-24] MEDS: Zinc Sulfate 220 MG CAP PO SCH (09:04)
[2020-12-24] MEDS: Aspirin 325 MG TAB PO SCH (09:04)
[2020-12-24] MEDS: Hydroxychloroquine Sulfate 200 MG TAB PO SCH ×2 (09:04→20:35)
[2020-12-24] MEDS: Colchicine 0.6 MG TAB PO SCH (09:05)
[2020-12-24] MEDS: Dexamethasone 4 MG TAB PO SCH (09:05)
[2020-12-24] MEDS: Midodrine HCl 5 MG TAB PO SCH ×3 (09:05→20:35)
[2020-12-25 05:45] LABS: Band 3 % (5-11); Hemoglobin 8.6 g/dL (14.0-18.0); Lymphocytes 5 % (21-51); MDiff Complete? YES; Mean Corpuscular HGB CONC 35.7 g/dL (32.0-36.0); Mean Corpuscular Hemoglobin 32.2 pg (27.0-31.0); Mean Corpuscular Volume 90.1 fL (78.0-98.0); Mean Platelet Volume 7.8 fL (7.4-10.4); Metamyelocyte 1 % (0-0); Monocytes 1 % (0-10); Myelocyte 1 % (0-0); Neutrophil 89 % (42-75); Platelet Count 182 thou/uL (130-400); Platelet Morphology Comment Appears Adequate; RBC Distribution Width 13.9 % (11.5-14.5); RBC Morphology Normal; Red Blood Cell (RBC) Count 2.68 mill/uL (4.70-6.10); White Blood Cell (WBC) Count 16.3 thou/uL (4.8-10.8)
[2020-12-25] MEDS: Colchicine 0.6 MG TAB PO SCH (08:10)
[2020-12-25] MEDS: Aspirin 325 MG TAB PO SCH (08:10)
[2020-12-25] MEDS: Zinc Sulfate 220 MG CAP PO SCH (08:10)
[2020-12-25] MEDS: Midodrine HCl 5 MG TAB PO SCH ×3 (08:10→22:02)
[2020-12-25] MEDS: Dexamethasone 4 MG TAB PO SCH (08:10)
[2020-12-26 06:22] LABS: Anion Gap 13 mmol/L (10-20); BUN (Urea Nitrogen) 22 mg/dL (8.4-25.7); Calc. Creatinine Clearance 64 mL/min (70-130); Carbon Dioxide 23 mmol/L (23-31); Chloride 105 mmol/L (98-107); Glucose 96 mg/dL (80-115); Sodium 137 mmol/L (136-145)
[2020-12-26 06:30] LABS: Band 7 % (5-11); Hemoglobin 9.9 g/dL (14.0-18.0); Hypochromia SLIGHT = 6-15 cells (100X) (0-5/hpf); Lymphocytes 11 % (21-51); MDiff Complete? YES; Mean Corpuscular HGB CONC 35.4 g/dL (32.0-36.0); Mean Corpuscular Hemoglobin 32.2 pg (27.0-31.0); Mean Platelet Volume 8.1 fL (7.4-10.4); Monocytes 10 % (0-10); Neutrophil 72 % (42-75); Platelet Count 191 thou/uL (130-400); Platelet Morphology Comment Appears Adequate; Red Blood Cell (RBC) Count 3.06 mill/uL (4.70-6.10); White Blood Cell (WBC) Count 15.3 thou/uL (4.8-10.8)
[2020-12-26] MEDS: Aspirin 325 MG TAB PO SCH (08:53)
[2020-12-26] MEDS: Midodrine HCl 5 MG TAB PO SCH (08:53)
[2020-12-26] MEDS: Dexamethasone 4 MG TAB PO SCH (08:53)
[2020-12-26] MEDS: Zinc Sulfate 220 MG CAP PO SCH (08:53)
[2020-12-26] MEDS: Colchicine 0.6 MG TAB PO SCH (08:54)
[2020-12-26 15:11] VITALS: BP 112/61; TEMP 98.5
== END 2020-12-26 16:20 | DRG 177 ==
LOC: ERS 13:37 → ERHOLD 17:51 → 2SW 22:25
PROVIDERS: ADMIT Emergency Medicine; ATTEND Emergency Medicine
PROC: 8E0ZXY6 Isolation (ICD-10-PCS; principal; 2020-12-14)
PROC: 3E0DX3Z Introduction of Anti-inflammatory into Mouth and Pharynx, External Approach (ICD-10-PCS; 2020-12-14)
PROC: XW033E5 Introduction of Remdesivir Anti-infective into Peripheral Vein, Percutaneous Approach, New Technology Group 5 (ICD-10-PCS; 2020-12-16)
DX: U07.1 COVID-19 (principal); J12.82 Pneumonia due to coronavirus disease 2019; K66.1 Hemoperitoneum; N17.9 Acute kidney failure, unspecified; J44.0 Chronic obstructive pulmonary disease with (acute) lower respiratory infection; Z20.822 Contact with and (suspected) exposure to COVID-19; F17.210 Nicotine dependence, cigarettes, uncomplicated; I48.91 Unspecified atrial fibrillation; N40.0 Benign prostatic hyperplasia without lower urinary tract symptoms; E86.0 Dehydration; E78.5 Hyperlipidemia, unspecified; D64.9 Anemia, unspecified; Z91.14 Patient's other noncompliance with medication regimen; Z98.890 Other specified postprocedural states
CPT/HCPCS: 36415; 36416; 36430; 71045; 74176; 76705; 76936; 80048; 80053; 83880; 84484; 85025; 85379; 85652; 86140; 86850; 86900; 86901; 87040; 87045; 87046; 87324; 87427; 87449; 93005; J0456; J1650; J2405; J3480; J7050; J8540; P9016; U0002

== ENCOUNTER 2021-03-21 10:12 | Outpatient (CLI) | payer MEDICARE | END 2021-03-21 10:13 | disposition home or self-care (01) | LOC: BICMRI 10:12 | PROVIDERS: ATTEND Nurse Practitioner Family | DX: M79.605 Pain in left leg (principal); M47.26 Other spondylosis with radiculopathy, lumbar region; M48.061 Spinal stenosis, lumbar region without neurogenic claudication; M48.07 Spinal stenosis, lumbosacral region; Z91.81 History of falling | CPT/HCPCS: 72148 ==

== ENCOUNTER 2022-07-17 08:55 | Outpatient (CLI) | payer MEDICARE | END 2022-07-17 08:56 | disposition home or self-care (01) | LOC: BICRAD 08:55 | PROVIDERS: ATTEND Specialist | DX: M54.2 Cervicalgia (principal); Z98.890 Other specified postprocedural states; M47.812 Spondylosis without myelopathy or radiculopathy, cervical region | CPT/HCPCS: 72040 ==